=== PATIENT | male | born 1975 | race American Indian/Alaskan Native ===

== ENCOUNTER 2017-11-22 20:31 | Emergency (ER) | payer OTHER ==
[2017-11-22 20:48] VITALS: RESP 18; TEMP 98.1; O2SAT 98
--- NOTE | 2017-11-22 21:27 | ED PDOC ---
HPI: Chest Pain Time Seen by Provider: 11/22/17 20:54 Chief Complaint (Nursing): Rib Injury Chief Complaint (Provider): Rib Injury History Per: Patient History/Exam Limitations: no limitations Additional Complaint(s): 42 year old male presents to the emergency department with a complaint of right- sided chest pain status post work injury around 1600 earlier today. 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 He reports pain on inspiration and with movement of torso in all direction. Patient did not take anything for pain prior to arrival. He denies any head injury or LOC. PMD: Dr. Miles Past Medical History Reviewed: Historical Data, Nursing Documentation, Vital Signs Vital Signs: Last Vital Signs Temp 98.1 F 11/22/17 20:45 Pulse 103 H 11/22/17 20:45 Resp 18 11/22/17 20:45 BP 155/97 H 11/22/17 20:45 Pulse Ox 98 11/22/17 21:39 - Medical History PMH: Hypercholesterolemia - Surgical History Other surgeries: left knee surgery - Family History Family History: States: No Known Family Hx - Living Arrangements Living Arrangements: With Family - Social History Current smoker - smoking cessation education provided: No Alcohol: Social Drugs: Denies - Allergies Allergies/Adverse Reactions: Allergies Allergy/AdvReac Type Severity Reaction Status Date / Time amoxicillin Allergy Mild SWELLING Verified 11/22/17 20:48 shellfish derived Allergy Mild RASH Verified 11/22/17 20:48 Iodinated Contrast- Oral and Allergy ANAPHYLAXIS Verified 11/22/17 21:31 IV Dye KWABENA Risk Score for UA/NSTEMI - KWABENA Risk Score Age > 64: NO 3 or more CAD Risk Factors: NO Known CAD (Stenosis greater than 50%): NO Aspirin use in past 7 days: NO Severe Angina: NO EKG ST changes greater than 0.5mm: NO Positive Cardiac Marker: NO KWABENA Score: 0 Risk %: 5% Review of Systems ROS Statement: Except As Marked, All Systems Reviewed And Found Negative Cardiovascular: Positive for: Chest Pain (right-sided, trauma) Respiratory: Negative for: Cough Gastrointestinal: Negative for: Nausea, Vomiting Neurological: Positive for: Other (no head injury or LOC) Physical Exam - Reviewed Nursing Documentation Reviewed: Yes Vital Signs Reviewed: Yes - Physical Exam Appears: Positive for: Well, Uncomfortable Head Exam: Positive for: ATRAUMATIC Skin: Positive for: Normal Color. Negative for: Rash Eye Exam: Positive for: Normal appearance Cardiovascular/Chest: Positive for: Regular Rate, Rhythm, Other (Diffuse ecchymosis noted to right lateral chest wall with moderate tenderness to palpation, no palpable bony deformities) Respiratory: Positive for: Normal Breath Sounds. Negative for: Wheezing, Respiratory Distress Gastrointestinal/Abdominal: Positive for: Other (Tenderness right upper quadrant and right flank region) Back: Positive for: R CVA Tenderness. Negative for: L CVA Tenderness, Vertebral Tenderness Extremity: Positive for: Normal ROM Neurologic/Psych: Positive for: Alert (x3), Oriented. Negative for: Motor/ Sensory Deficits - ECG O2 Sat by Pulse Oximetry: 98 (RA) Pulse Ox Interpretation: Normal Medical Decision Making Medical Decision Making: Initial Impression: Chest wall contusion Initial Plan: * CT chest, ABD without contrast * Toradol 30mg IM * Tylenol 975mg PO * Ultram 50mg PO * EKG refused by patient Patient unable to lie flat for CAT scan. He is refusing further pain medication and does not want to have CT. He states he prefers to follow up with primary doctor tomorrow. Patient was advised he would need to sign out AGAINST MEDICAL ADVICE. The risks and dangers of signing out AGAINST MEDICAL ADVICE were discussed in detail with patient including but not limited to worsening current condition, acute medical injury and possible . Patient verbalized understanding of these risks and dangers and still wishes to leave AMA. He was instructed to return any time if worse or follow up with PMD. Scribe Attestation: Documented by Bailey Puri, acting as a scribe for Gianna Noble PA-C. Provider Scribe Attestation: All medical record entries made by the Scribe were at my direction and personally dictated by me. I have reviewed the chart and agree that the record accurately reflects my personal performance of the history, physical exam, medical decision making, and the department course for this patient. I have also personally directed, reviewed, and agree with the discharge instructions and disposition. Disposition - Clinical Impression Clinical Impression: Chest trauma - Patient ED Disposition Is Patient to be Admitted: No - Disposition Disposition: Against Medical Advice Disposition Time: 22:57 Condition: UNKNOWN Additional Instructions: You have decided to sign out AGAINST MEDICAL ADVICE. Follow up as soon as possible with primary doctor or return to ED if worse. Instructions: Leaving Against Medical Advice, General Trauma Forms: [place] ([place])
[2017-11-22 22:57] VITALS: BP 148/96; PULSE 90
== END 2017-11-22 23:04 | disposition left against medical advice (07) ==
LOC: H.ER 20:31
DX: S20.219A Contusion of unspecified front wall of thorax, initial encounter (principal); W22.8XXA Striking against or struck by other objects, initial encounter; Y99.0 Civilian activity done for income or pay; E78.00 Pure hypercholesterolemia, unspecified
CPT/HCPCS: 96372; 99283; J1885